=== PATIENT | male | born 1970 | race African-American/Black ===

== ENCOUNTER 2016-12-23 13:14 | Inpatient (IN) | payer BC ==
--- NOTE | ~2016-12-23 | DS ---
Discharge Summary [facility] [address] [place]. [address] NAME: PEDRO PABLO SCHAFER : 70 STATUS : DIS IN PAT#: [id number] AGE: 46 ADM/REG DATE : 12/23/16 MR#: [id number] REPORT SERV DATE: 12/28/16 DICTATED BY: CLIFTON MORALES DATE: 12/27/16 REPORT STATUS : Draft TRANSCRIBED BY: MODCynthia DATE: 12/27/16 ADMISSION DATE: 12/23/2016 DISCHARGE DATE: 12/27/2016 PROCEDURES DONE: 1. 12/24/2016, 2D echo: Normal left ventricular systolic function with EF of 55% to 60%. Mild LVH. Mild diastolic dysfunction. Normal right ventricular chamber size and systolic function. No significant valve regurg or stenosis. 2. 12/23/2016, ultrasound of lower extremity: No right or left extremity DVT. 3. 12/23/2014, CT of abdomen and pelvis without contrast: No acute intraabdominal process. REASON FOR ADMISSION/CHIEF COMPLAINT: Shortness of breath. HISTORY OF PRESENT ILLNESS: A 46-year-old black male with past medical history of diabetes, hypertension, morbid obesity with BMI of 41 presenting with shortness of breath, unknown duration. The patient was admitted for further evaluation of shortness of breath. It turns out, the patient was having hypertensive urgency along with acute exacerbation of asthma. The patient was noted to have a very yshwyunqa-dr-piydgri blood pressure, and the patient was put on clonidine, prazosin, and isosorbide mononitrate. The patient's blood pressure has been somewhat controlled where he runs between 130 to 150 systolic. More importantly, the patient was also noted to have elevated blood sugar. Again, the patient apparently states that he takes metformin and glyburide which helps control his sugar. However, the patient has been having blood sugar as high as 401 and has a blood sugar range between 200 to 400. Therefore, the patient has been switched to Lantus and Novolin. The patient has been advised to continue his Lantus and Novolin to ensure that the patient has better blood sugar control. DISPOSITION: The patient is feeling fine. No complaints. ACTIVITIES: As tolerated. DIET: Diabetic. PLAN ON DISCHARGE: The patient to follow with primary care within one to two weeks' time. MEDICATION UPON DISCHARGE: 1. Ibuprofen 400 mg p.o. daily p.r.n. 2. Coreg 25 mg p.o. b.i.d. 3. Flonase one spray each nostril daily. 4. Insulin sliding scale level 3, check blood sugar a.c. and at bedtime. 5. NovoLog 5 units before meals. 6. Imdur 30 mg p.o. daily. 7. Losartan 100 mg p.o. daily. 8. Singulair 10 mg p.o. daily. 9. Habitrol 14 mg p.o. daily. Discharge Summary [address] [address] NAME: PEDRO PABLO SCHAFER : 70 STATUS : DIS IN PAT#: [id number] AGE: 46 ADM/REG DATE : 12/23/16 MR#: [id number] REPORT SERV DATE: 12/28/16 DICTATED BY: CLIFTON MORALES DATE: 12/27/16 REPORT STATUS : Draft TRANSCRIBED BY: MODL DATE: 12/27/16 10.Minipress 1 mg p.o. t.i.d. 11.Catapres 0.5 mg p.o. t.i.d. 12.ProAir two puffs q.4 hours p.r.n. 13.Levemir 20 subcu at bedtime. DIAGNOSES UPON DISCHARGE: 1. Shortness of breath secondary to hypertensive urgency versus asthma exacerbation. 2. Acute exacerbation of asthma. 3. Hypertensive urgency. 4. Diabetes type 2. PHILIP/RACHEL Clifton Morales MD / [id number] CC: Clifton Morales MD
--- NOTE | ~2016-12-23 | HP ---
History And Physical [address] [id number] [facility] [place]. 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 HISTORY OF PRESENT ILLNESS: This is a 46-year-old, obese male with known history of diabetes on oral anti hyperglycemics, hypertension for which he is on losartan and carvedilol, known history of asthma with just rescue inhaler and Singulair. The patient comes in about two or three days of significant swelling in his lower extremities as well as abdominal distention for the past two to three weeks, positive recent orthopnea, no PND. The patient denies any fevers or chills, positive nausea. No vomiting. No diarrhea. No chest pain. No chest pressure. Positive shortness of breath. Positive productive cough. Positive wheezing in the past. No melena, no hematochezia. The patient states he thought he was having an asthma exacerbation in the past. As a result, he increased his albuterol p.r.n. usage. Unfortunately, his progressive anasarca continued and orthopnea worsened prompting admission in the emergency department. Chest x-ray is still pending. It is ordered, I cannot see it on the PACS. The patient has significant shortness of breath. It is currently 93% on room air. Now, he is about 98% on 2 L. Significant hypertension 221, was given an inch of nitroglycerin paste to the chest. Pressure is now 236. The patient denies any drug use. No meth, no crack or cocaine. However, the patient is an alcoholic about 3 beers a day, sometimes has more on the weekends, his drink is unclear. The patient states he has had increased lower extremity swelling with concomitant bilateral abdominal flank pain. Flank pain is not postprandial. It occurs spontaneously and has only occurred in the last two days. He has no costovertebral angle tenderness. REVIEW OF SYSTEMS: Review of systems done, see HPI. Otherwise, negative. PAST MEDICAL HISTORY/PAST SURGICAL HISTORY: See above. ALLERGIES: NO KNOWN DRUG ALLERGIES EXCEPT HAS APPARENT SWELLING, PRURITUS TO HYDROCODONE, STATES HE CAN TAKE DILAUDID. SOCIAL HISTORY: Drinks about 3 beers equivalents per day. Sometimes more on the weekends and smokes about 3 cigarettes a day, been doing so since age 20. No drug use. FAMILY HISTORY: No early family history of CAD or stroke per the patient, hypertension at least one parent. MEDICATIONS: See MAR. We will continue what is relevant. History And Physical [address] [address] NAME: PEDRO PABLO SCHAFER : 70 STATUS : ADM IN [facility]#: [id number] AGE: 46 ADM/REG DATE : 12/23/16 MR#: [id number] REPORT SERV DATE: 12/23/16 DICTATED BY: CHASE MOSHER DATE: 12/23/16 REPORT STATUS : Draft TRANSCRIBED BY: RACHEL DATE: 12/23/16 OBJECTIVE: VITAL SIGNS: He is now 236 systolic, was 221/108, temp 98.4, 81 pulse, 16 respirations, 93% on room air. Now he is on 2 L nasal cannula, saturating over 96%. GENERAL: No acute distress, except he is a bit guarded for his general. HEENT: PERRLA. No scleral icterus. CARDIOVASCULAR: Regular rate and rhythm. No murmur. No carotid bruits auscultated. RESPIRATORY: Some very mild expiratory wheezing in the bibasilar regions, some very mild bibasilar crackles. Decreased breath sounds. Difficulty to hear given the body habitus. ABDOMEN: Does have some mild bilateral flank tenderness. However, he has no costovertebral tenderness to palpation or very mild pressing. NEURO: He is A and O x4/4, GCS of 15. PSYCH: Normal affect. Normal mood. EXTREMITIES: Does have about 2+ pitting edema. LABS: White count 5.1, hemoglobin 14.1, 119,000 platelets, 4.4 potassium, 32 bicarb, 0.78 creatinine, 12 BUN, 139 sodium, 213 sugar, troponin 0.07, BNP 163, magnesium of 1.5. He has got an EKG that appears to be early repolarization V2 to V3. I do not have a baseline in front of me. Otherwise, no ischemic ST-T changes. I would like to repeat his EKG as a result of early repolarization. Troponin 0.07, hypertensive urgency. Rule out any demand ischemia. Chest x-ray pending. ASSESSMENT AND PLAN: 1. Hypertensive urgency. 2. Asthma acute exacerbation with productive cough, possible bronchitis. 3. Hypomagnesemia. 4. Diabetes. 5. Troponinemia, very mild with early repolarization V2 V3 about 1 mm. PLAN: We will go ahead and admit this patient to cardiac tele given hypertensive urgency. We would like to reduce the mean arterial pressure by 25% only in the first six hours but would not like to over-shoot. As a result, we will alternate between labetalol and IV hydralazine. The patient may have contributions from secondary hypertension given his young age of 46. As a result, we will get a renal Doppler arterial ultrasound phase to ensure he does not have any renal artery stenosis, get a pheochromocytoma workup, serum aldosterone, renin, however, patient's alcoholism likely is contributing as well. As a result, placed on Librium 10 p.o. t.i.d., Ativan p.r.n. We will also, given his significant lower extremity swelling place him on IV Bumex, get an echo, rule out for any VTE, get an A1c regarding his hyperglycemia that may worsen with prednisone which we will give for asthma acute exacerbation with IV Levaquin, bronchitis rule out as I do not have his chest x-ray on PACS in front of me, pending. We will get a CT abdomen pelvis regarding his flank pain. We will make orders of tomorrow; if systolic more than 160 in the a.m. we will start on Imdur 30 p.o. daily, place him on Dulera. He likely needs to stop smoking. I counseled him on this as smoking is the #1 most preventable cause of in [place], placed him on Lipitor 40, repeat his EKG. See rest of my orders. History And Physical [address] [address] NAME: PEDRO PABLO SCHAFER : 70 STATUS : ADM IN PAT#: [id number] AGE: 46 ADM/REG DATE : 12/23/16 MR#: [id number] REPORT SERV DATE: 12/23/16 DICTATED BY: CHASE MOSHER DATE: 12/23/16 REPORT STATUS : Draft TRANSCRIBED BY: MODL DATE: 12/23/16 All questions were answered. It took well over 60 minutes to do. Reference [employer] as I will follow up this patient, and I have told the ER nurse please provide 15 IV hydralazine at this time. WST/RACHEL Chase Mosher DO / [id number] CC: Madhavi Duran M.D.
[2016-12-23 11:55] LABS: BASOPHILS 0.6 %; BASOPHILS ABSOLUTE 0.03 10/3/uL (0.0-0.16); EOSINOPHILS 2.6 %; EOSINOPHILS ABSOLUTE 0.13 10/3/uL (0.0-0.53); HEMOGLOBIN 14.1 g/dL (13.6-17.8); IMMATURE GRANULOCYTES 0.2 %; IMMATURE GRANULOCYTES ABSOLUTE 0.01 10/3/uL (0.0-0.11); LYMPHOCYTES 21.1 %; LYMPHOCYTES ABSOLUTE 1.07 10/3/uL (0.67-4.30); MEAN CORPUS HGB CONC 32.7 g/dL (32.0-36.0); MEAN CORPUSCULAR HEMOGLOB 29.1 pg (26.0-34.0); MEAN PLATELET VOLUME 10.9 fL (9.2-13.0); MONOCYTES 14.4 %; MONOCYTES ABSOLUTE 0.73 10/3/uL (0.21-1.20); NEUTROPHILS 61.1 %; NEUTROPHILS ABSOLUTE 3.11 10/3/uL (2.02-8.40); RBC DISTRIBUTION WIDTH 14.8 % (12.0-16.0); RED CELL COUNT 4.84 10/6/uL (4.7-6.1); WHITE BLOOD CELLS 5.1 10/3/uL (4.5-10.5)
[2016-12-23 11:56] LABS: HEMATOCRIT 43.1 % (40.0-51.0); MANUAL DIFF NO %; PLATELET COUNT 119 10/3/uL (150-400)
[2016-12-23 12:03] LABS: INTERNATIONAL NORMAL RATI 1.1 UNITS (-); PARTIAL THROMBO TIME 31.5 SEC (22.5-37.2); PROTIME (NOT ORD) 14.2 SEC (12.0-14.5)
[2016-12-23 12:12] LABS: BUN (BLOOD UREA NITROGEN) 12 MG/DL (6-23); CALCIUM, SERUM 9.3 MG/DL (8.5-10.4); CHLORIDE, SERUM 99 MMOL/L (96-112); CO2 (CARBON DIOXIDE) 32 MMOL/L (24-34); CREATININE 0.78 MG/DL (0.70-1.30); GFR AFRICAN AMERICAN 125 ML/MIN (>=60); GFR NON AFRICAN AMERICAN 108 ML/MIN (>=60); POTASSIUM, SERUM 4.4 MMOL/L (3.5-5.3); SODIUM, SERUM 139 MMOL/L (135-148)
[2016-12-23 12:13] LABS: CHEST PAIN PROFILE TAT 0 Hrs 22 Mins; GLUCOSE, SERUM 213 MG/DL (60-99); TROPONIN I 0.07 NG/ML (<0.05)
[2016-12-23 12:17] LABS: B NATRIURETIC PEPTIDE (BNP) 162.8 PG/ML (< 100.0)
[2016-12-23] MEDS ORDERED: FLONASE NAS (14:12)
[2016-12-23] MEDS ORDERED: COREG25 PO (14:13)
[2016-12-23] MEDS ORDERED: GLUCOPHXR PO ×2 (14:13)
[2016-12-23] MEDS ORDERED: SINGULAIR1 PO (14:14)
[2016-12-23] MEDS ORDERED: GLUCXL10 PO (14:14)
[2016-12-23] MEDS ORDERED: PROAIR HFA INH (14:15)
[2016-12-23] MEDS ORDERED: COZAAR100 MG PO (14:15)
[2016-12-23] MEDS ORDERED: ADVIL PO (14:16)
[2016-12-23 18:51] LABS: ASCORBIC ACID (UR NOT ORDER) NEG (NEG); BILIRUBIN, URINE NEGATIVE (NEG); KETONE, URINE NEGATIVE (NEG); LEUKOCYTE ESTERASE(NOT OR NEG (NEG); WBC (NOT ORDERED) (RFLEX) 2 (0-5)
[2016-12-23 19:37] LABS: PHOSPHORUS, SERUM 4.3 MG/DL (2.5-4.5); SGOT(AST) 86 U/L (5-40); SGPT(ALT) 54 U/L (5-65); TOTAL PROTEIN 7.4 G/DL (6.0-8.5)
[2016-12-23 19:42] LABS: A/G RATIO 0.6 (0.7-1.9); ALBUMIN 2.8 G/DL (3.5-5.0); ALKALINE PHOSPHATASE 86 U/L (45-117); GLOBULIN 4.6 G/DL (2.5-4.1); TOTAL BILIRUBIN 0.5 MG/DL (0-1.2)
[2016-12-23 19:58] LABS: PROCALCITONIN 0.21 ng/mL (<0.5)
[2016-12-23 22:47] LABS: GLYCOHEMOGLOBIN (HbA1c) 7.7 % (4.7-6.1)
[2016-12-24 06:12] LABS: BASOPHILS 0.2 %; BASOPHILS ABSOLUTE 0.01 10/3/uL (0.0-0.16); EOSINOPHILS 0.2 %; EOSINOPHILS ABSOLUTE 0.01 10/3/uL (0.0-0.53); HEMATOCRIT 43.4 % (40.0-51.0); HEMOGLOBIN 14.2 g/dL (13.6-17.8); IMMATURE GRANULOCYTES 0.2 %; IMMATURE GRANULOCYTES ABSOLUTE 0.01 10/3/uL (0.0-0.11); LYMPHOCYTES 13.3 %; LYMPHOCYTES ABSOLUTE 0.66 10/3/uL (0.67-4.30); MANUAL DIFF NO %; MEAN CORPUS HGB CONC 32.7 g/dL (32.0-36.0); MEAN CORPUSCULAR HEMOGLOB 30.1 pg (26.0-34.0); MEAN CORPUSCULAR VOLUME 91.9 fL (80-100); MEAN PLATELET VOLUME 11.8 fL (9.2-13.0); MONOCYTES 7.2 %; MONOCYTES ABSOLUTE 0.36 10/3/uL (0.21-1.20); NEUTROPHILS 78.9 %; NEUTROPHILS ABSOLUTE 3.93 10/3/uL (2.02-8.40); PLATELET COUNT 130 10/3/uL (150-400); RBC DISTRIBUTION WIDTH 14.6 % (12.0-16.0); RED CELL COUNT 4.72 10/6/uL (4.7-6.1)
[2016-12-24 06:20] LABS: BUN (BLOOD UREA NITROGEN) 15 MG/DL (6-23); CALCIUM, SERUM 9.1 MG/DL (8.5-10.4); CHLORIDE, SERUM 96 MMOL/L (96-112); CO2 (CARBON DIOXIDE) 30 MMOL/L (24-34); CREATININE 0.95 MG/DL (0.70-1.30); GFR AFRICAN AMERICAN 111 ML/MIN (>=60); GFR NON AFRICAN AMERICAN 96 ML/MIN (>=60); GLUCOSE, SERUM 268 MG/DL (60-99); PHOSPHORUS, SERUM 4.1 MG/DL (2.5-4.5); POTASSIUM, SERUM 4.6 MMOL/L (3.5-5.3); SODIUM, SERUM 137 MMOL/L (135-148)
[2016-12-25 05:13] LABS: BASOPHILS 0.3 %; BASOPHILS ABSOLUTE 0.02 10/3/uL (0.0-0.16); EOSINOPHILS 0.4 %; EOSINOPHILS ABSOLUTE 0.03 10/3/uL (0.0-0.53); HEMATOCRIT 42.5 % (40.0-51.0); IMMATURE GRANULOCYTES 0.3 %; IMMATURE GRANULOCYTES ABSOLUTE 0.02 10/3/uL (0.0-0.11); LYMPHOCYTES 15.2 %; LYMPHOCYTES ABSOLUTE 1.17 10/3/uL (0.67-4.30); MEAN CORPUS HGB CONC 32.9 g/dL (32.0-36.0); MEAN CORPUSCULAR HEMOGLOB 30.3 pg (26.0-34.0); MEAN PLATELET VOLUME 11.5 fL (9.2-13.0); MONOCYTES 11.9 %; MONOCYTES ABSOLUTE 0.92 10/3/uL (0.21-1.20); NEUTROPHILS 71.9 %; NEUTROPHILS ABSOLUTE 5.54 10/3/uL (2.02-8.40); PLATELET COUNT 133 10/3/uL (150-400); RBC DISTRIBUTION WIDTH 14.3 % (12.0-16.0); RED CELL COUNT 4.62 10/6/uL (4.7-6.1)
[2016-12-25 05:14] LABS: MANUAL DIFF NO %; WHITE BLOOD CELLS 7.7 10/3/uL (4.5-10.5)
[2016-12-25 05:26] LABS: CALCIUM, SERUM 8.9 MG/DL (8.5-10.4); CHLORIDE, SERUM 95 MMOL/L (96-112); CO2 (CARBON DIOXIDE) 33 MMOL/L (24-34); GFR AFRICAN AMERICAN 104 ML/MIN (>=60); GFR NON AFRICAN AMERICAN 90 ML/MIN (>=60); GLUCOSE, SERUM 280 MG/DL (60-99); PHOSPHORUS, SERUM 3.8 MG/DL (2.5-4.5); SODIUM, SERUM 136 MMOL/L (135-148)
[2016-12-25 05:31] LABS: BUN (BLOOD UREA NITROGEN) 24 MG/DL (6-23)
[2016-12-26 06:33] LABS: ALBUMIN 2.5 G/DL (3.5-5.0); CALCIUM, SERUM 8.9 MG/DL (8.5-10.4); CHLORIDE, SERUM 96 MMOL/L (96-112); CO2 (CARBON DIOXIDE) 34 MMOL/L (24-34); CREATININE 1.08 MG/DL (0.70-1.30); GFR AFRICAN AMERICAN 95 ML/MIN (>=60); GFR NON AFRICAN AMERICAN 82 ML/MIN (>=60); POTASSIUM, SERUM 3.8 MMOL/L (3.5-5.3); SODIUM, SERUM 137 MMOL/L (135-148)
[2016-12-26 06:34] LABS: BASOPHILS 0.5 %; BASOPHILS ABSOLUTE 0.03 10/3/uL (0.0-0.16); EOSINOPHILS ABSOLUTE 0.06 10/3/uL (0.0-0.53); HEMOGLOBIN 14.3 g/dL (13.6-17.8); IMMATURE GRANULOCYTES 0.2 %; IMMATURE GRANULOCYTES ABSOLUTE 0.01 10/3/uL (0.0-0.11); LYMPHOCYTES 17.2 %; LYMPHOCYTES ABSOLUTE 1.08 10/3/uL (0.67-4.30); MANUAL DIFF NO %; MEAN CORPUS HGB CONC 33.3 g/dL (32.0-36.0); MEAN CORPUSCULAR HEMOGLOB 30.7 pg (26.0-34.0); MEAN CORPUSCULAR VOLUME 92.3 fL (80-100); MEAN PLATELET VOLUME 11.8 fL (9.2-13.0); MONOCYTES 13.1 %; MONOCYTES ABSOLUTE 0.82 10/3/uL (0.21-1.20); NEUTROPHILS ABSOLUTE 4.27 10/3/uL (2.02-8.40); PLATELET COUNT 133 10/3/uL (150-400); RBC DISTRIBUTION WIDTH 14.5 % (12.0-16.0); RED CELL COUNT 4.66 10/6/uL (4.7-6.1); WHITE BLOOD CELLS 6.3 10/3/uL (4.5-10.5)
[2016-12-26 06:37] LABS: BUN (BLOOD UREA NITROGEN) 29 MG/DL (6-23); GLUCOSE, SERUM 200 MG/DL (60-99); PHOSPHORUS, SERUM 4.8 MG/DL (2.5-4.5)
[2016-12-27 07:01] LABS: BASOPHILS 0.2 %; BASOPHILS ABSOLUTE 0.01 10/3/uL (0.0-0.16); EOSINOPHILS 0.7 %; EOSINOPHILS ABSOLUTE 0.04 10/3/uL (0.0-0.53); HEMATOCRIT 44.5 % (40.0-51.0); HEMOGLOBIN 14.6 g/dL (13.6-17.8); IMMATURE GRANULOCYTES 0.2 %; IMMATURE GRANULOCYTES ABSOLUTE 0.01 10/3/uL (0.0-0.11); LYMPHOCYTES 18.3 %; LYMPHOCYTES ABSOLUTE 1.11 10/3/uL (0.67-4.30); MEAN CORPUS HGB CONC 32.8 g/dL (32.0-36.0); MEAN CORPUSCULAR HEMOGLOB 29.9 pg (26.0-34.0); MEAN CORPUSCULAR VOLUME 91.2 fL (80-100); MEAN PLATELET VOLUME 12.4 fL (9.2-13.0); MONOCYTES 13.7 %; MONOCYTES ABSOLUTE 0.83 10/3/uL (0.21-1.20); NEUTROPHILS 66.9 %; NEUTROPHILS ABSOLUTE 4.08 10/3/uL (2.02-8.40); PLATELET COUNT 135 10/3/uL (150-400); RBC DISTRIBUTION WIDTH 14.3 % (12.0-16.0); RED CELL COUNT 4.88 10/6/uL (4.7-6.1); WHITE BLOOD CELLS 6.1 10/3/uL (4.5-10.5)
[2016-12-27 07:02] LABS: MANUAL DIFF NO %
[2016-12-27 07:14] LABS: CALCIUM, SERUM 8.9 MG/DL (8.5-10.4); CHLORIDE, SERUM 98 MMOL/L (96-112); CO2 (CARBON DIOXIDE) 33 MMOL/L (24-34); GFR AFRICAN AMERICAN 84 ML/MIN (>=60); GFR NON AFRICAN AMERICAN 72 ML/MIN (>=60); GLUCOSE, SERUM 210 MG/DL (60-99); POTASSIUM, SERUM 3.8 MMOL/L (3.5-5.3); SODIUM, SERUM 138 MMOL/L (135-148)
[2016-12-27 07:15] LABS: BUN (BLOOD UREA NITROGEN) 35 MG/DL (6-23); PHOSPHORUS, SERUM 3.7 MG/DL (2.5-4.5)
[2016-12-27] MEDS ORDERED: INSNOVR SC ×2 (18:25→18:26)
[2016-12-27] MEDS ORDERED: MINIPRESS 1 MG C1 MG PO (18:40)
[2016-12-27] MEDS ORDERED: IMDUR30 PO (18:40)
[2016-12-27] MEDS ORDERED: HABIT14 TOP (18:41)
[2016-12-27] MEDS ORDERED: CAT1 PO (18:41)
[2016-12-27] MEDS ORDERED: LANTUS SC (19:39)
== END 2016-12-27 20:03 | disposition home or self-care (01) | DRG 305 ==
LOC: ER 13:14 → 5NO 15:57
PROVIDERS: Emergency Medicine; Hospitalist; Internal Medicine
DX: I16.0 Hypertensive urgency (principal); J45.901 Unspecified asthma with (acute) exacerbation; Z68.41 Body mass index [BMI] 40.0-44.9, adult; E83.42 Hypomagnesemia; E66.01 Morbid (severe) obesity due to excess calories; E11.9 Type 2 diabetes mellitus without complications; Z79.84 Long term (current) use of oral hypoglycemic drugs
CPT/HCPCS: 74176; 80048; 80053; 80069; 81001; 82088; 82384; 82962; 83036; 83735; 83880; 84100; 84145; 84443; 84484; 84585; 85025; 85610; 85730; 87449; 90686; 93005; 93306; 93970; 93975; 94640; 96374; 97161-GP; 99285; A9270-GY; G0008; J0360; J1170; J1956